=== PATIENT | female | born 1975 | race Caucasian/White ===

== ENCOUNTER 2022-10-31 01:03 | Day surgery (SDC) | payer SELFPAY ==
[2022-10-31] VITALS (16 sets, daily range): BP systolic 101–142; BP diastolic 61–85; PULSE 51–97; RESP 12–18; TEMP 36.1–36.7; O2SAT 91–100; BMI 31.0
--- NOTE | 2022-10-31 01:23 | ED.GENADULT ---
HPI - General Adult General Chief complaint: Abdominal Pain Stated complaint: sharp pain lower right abdomen Time Seen by Provider: 10/31/22 01:16 History of Present Illness HPI narrative: RLQ pain started 1730, took tylenol at 2200. pt states pain severe feels like basketball in RLQ. hard step worsens pain. last food 1900, last fluid [address] to ER. hx hernia in groin unknown side, still has appendix. did have nausea, comes and goes. no vomiting. states allergy to nsaids causes throat swelling. 47-year-old woman presenting to the emergency department complaint of pain in the right lower abdomen. Began this evening about 8 hours prior to arrival. Described as sharp maybe crampy. Feels like there is a basketball in her abdomen. She denies constipation. Stepping down hard hurts. She feels a little nauseated. Does have a history of herniorrhaphy is as she is gesturing to the left side she thinks as well as umbilical. Tried Tylenol for pain without relief. Denies personal or family history of gallbladder disease or appendicitis or nephrolithiasis/ureteral stone/colic. Was outside today some and took care to stay well-hydrated. She is not experiencing any dysuria Related Data Home Medications Medication Instructions Recorded Confirmed multivitamin 1 tab PO QAM 10/31/21 10/31/21 sumatriptan 5 mg/actuation nasal 5 mg intranasal .As Needed PRN 10/31/21 10/31/21 spray Previous Rx's Medication Instructions Recorded hydrocodone 5 mg-acetaminophen 325 1 tab PO Q6H PRN pain #25 tabs 10/31/22 mg tablet Allergies Allergy/AdvReac Type Severity Reaction Status Date / Time aspirin Allergy Severe Throat Verified 11/14/22 14:39 swells Cephalosporins Allergy Intermediate Hives Verified 11/14/22 14:39 ibuprofen Allergy Intermediate Hives Verified 11/14/22 14:39 pollen extracts Allergy Intermediate Verified 11/14/22 14:39 shellfish derived Allergy Unknown Verified 11/14/22 14:39 NSAIDS (Non-Steroidal Allergy Verified 11/14/22 14:39 Anti-Inflamma Review of Systems Status of ROS: Reports: 6 or more systems reviewed and unremarkable except as noted in History and below [facility] Medical History Menorrhagia ?N92.0 - Excessive and frequent menstruation with regular cycle (ICD-10) Surgical History Status post inguinal hernia repair ?Z98.890 - Other specified postprocedural states (ICD-10) ?Z87.19 - Personal history of other diseases of the digestive system (ICD-10) History of ventral hernia repair ?Z98.890 - Other specified postprocedural states (ICD-10) ?Z87.19 - Personal history of other diseases of the digestive system (ICD-10) History of dilation and curettage ?Z98.890 - Other specified postprocedural states (ICD-10) Family History Other Breast cancer Glioblastoma Liver cancer Social History Smoking Status: Never smoker How often do you have a drink containing alcohol: never AUDIT-C Alcohol total score: 0 Non-prescribed substance use: denies use Little interest or pleasure in doing things: not at all Feeling down, depressed, or hopeless: not at all Exam Narrative: Exam Narrative: Brow is furrowed as if uncomfortable. Breathing easily. Lungs appear to be clear. Heart in a regular rate and rhythm. Abdomen with normoactive bowel sounds is soft and moderately tender without peritoneal signs actually deep in the right adnexal area. She has a little sore in suprapubic as well. No flank pain. Extremities are without edema and well perfused. Moving all extremities without difficulty. Skin is warm and dry without apparent rash. Const: Vital Signs, click to edit/add: Vital Signs - 24 hr 10/31/22 01:11 10/31/22 04:30 Temperature 97.9 F Pulse Rate [Left P ulse Oximeter] 83 56 L Respiratory Rate 16 16 Blood Pressure [Ri ght Upper Arm] 142/85 H 118/79 Pulse Oximetry 100 97 Oxygen Delivery Me thod Room Air Room Air Documenting provider has reviewed patient's vital signs: yes Course Vital Signs Vital signs: Initial Vital Signs Temperature 97.9 F 10/31/22 01:11 Temperature Source Temporal Artery Scan 10/31/22 01:11 Pulse Rate 83 07/20/23 01:11 Respiratory Rate 16 10/31/22 01:11 Blood Pressure 142/85 H 10/31/22 01:11 Blood Pressure Mean 104 10/31/22 01:11 Blood Pressure Position Sitting 10/31/22 01:11 Pulse Oximetry 100 10/31/22 01:11 Oxygen Delivery Method Room Air 10/31/22 01:11 Vital Signs Temperature 97.9 F 10/31/22 01:11 Pulse Rate 83 10/31/22 01:11 Respiratory Rate 16 10/31/22 01:11 Blood Pressure 142/85 H 10/31/22 01:11 Pulse Oximetry 100 10/31/22 01:11 Oxygen Delivery Method Room Air 10/31/22 01:11 Temperature 98.0 F 10/31/22 11:04 Pulse Rate 55 L 10/31/22 11:04 Respiratory Rate 16 10/31/22 11:04 Blood Pressure 118/71 10/31/22 11:04 Pulse Oximetry 98 10/31/22 11:04 Oxygen Delivery Method Room Air 10/31/22 11:04 Oxygen Flow Rate 2 10/31/22 08:32 Medical Decision Making MDM Narrative Medical decision making narrative: Pain is in the area that I might think of an ovarian issue. She is not having torsion level pain I think furthermore as far she knows has never had an ovarian cyst and now with IUD. Unlikely to start now I would think. Ureteral stone remains in differential as well. Possible UTI. Possible appendicitis. Mesenteric adenitis also in differential. Check labs direct further evaluation. She does not feel she needs anything for nausea or pain at the moment. Only mildly elevated CRP. Urinalysis comes back with small amount of white cells and concentrated. CRP only slightly elevated 1.2 and a normal white count. At this point I think CT imaging might be best course of action. I do not think that an ultrasound is going to provide an answer even though has normal white count. Initiated IV fluids. CT scan reviewed by me shows possibly mildly inflamed appendix; appendicolith. I am contacted by radiologist for read as below. INDICATION: Right adnexal area pain. COMPARISON: CT of the abdomen and pelvis with contrast from 04/16/2017. TECHNIQUE: CT examination of the abdomen and pelvis was performed with the uneventful intravenous administration of 100 cc of Omnipaque 350 while 3 mm thick axial sections were obtained from the lung bases through the pubic symphysis. Oral contrast was not administered. Please note that all CT scans at this facility use dose modulation, iterative reconstruction, and/or weight-based dosing when appropriate to reduce radiation dose to as low as reasonably achievable. FINDINGS: In the abdomen, the liver has increased size of the small probable cyst in the superior lateral left lobe, segment 2. The this is of no clinical concern. The rest of the liver is normal in appearance. The spleen, pancreas, and adrenals are normal in appearance. The kidneys are normal in appearance. The gallbladder is normal in appearance. The abdominal aorta is normal in caliber with no sign of dilatation. There is no sign of retroperitoneal mass or adenopathy. The stomach, loops of small bowel, and colon in the abdomen are normal in appearance. The appendix is now dilated at 10 millimeters with mild thickening of its mcgwoan and with mild periappendiceal inflammation. A tiny appendicolith is seen proximally. There is no sign of any periappendiceal fluid or free fluid or free air in the pelvis. The findings are that of acute, nonruptured diverticulitis. The loops of small bowel, colon, and rectum in the pelvis are normal in appearance. The uterus has placement of a new T-shaped intrauterine device in satisfactory position. The adnexal regions are normal in appearance. The urinary bladder is normal in appearance. There is no sign of pelvic or inguinal mass or adenopathy. There is no sign of free air or free fluid in the abdomen or pelvis. There is increased patchy density throughout the posterior portions of both lower lobes, increasing patchy atelectasis. The osseous structures are normal in appearance for the patient`s age. IMPRESSION: CT of the pelvis shows new findings of acute, nonruptured appendicitis. Satisfactory positioning of a T-shaped intrauterine device, new compared to the previous study. CT of the abdomen shows a slight increase in size of a small probable cyst in the left lobe of the liver, of no clinical concern. I anticipate talking with our general surgeon Discussed with General surgery on-call. Anticipating early childhood associate teacher surgery. Admitted to surgery Lab Data Lab results reviewed: Yes I reviewed the patient's lab results Labs: Lab Results 10/31/22 10/31/22 Range/Units 01:25 01:36 WBC 10.83 (4.50-11.00) K/uL RBC 4.65 (4.00-5.20) m/uL Hgb 14.0 (12.0-16.0) gm/dL Hct 42.0 (33.0-51.0) % MCV 90 (80-100) fL MCH 30 (26-34) pg MCHC 33 (32-36) gm/dL RDW Coeff of Teresa 11.6 (11.5-15.5) % Plt Count 277 (140-440) K/uL Neut % (Auto) 74.6 H (42.0-72.0) % Lymph % (Auto) 17.2 L (20-44) % Quay % (Auto) 6.6 (0.0-11.0) % Eos % (Auto) 1.2 (0.0-7.0) % Baso % (Auto) 0.3 (0.0-3.0) % Neut # (Auto) 8.10 H (1.7-7.0) K/uL Lymph # (Auto) 1.90 (0.90-2.90) K/uL Quay # (Auto) 0.70 (0.00-0.90) K/UL Eos # (Auto) 0.13 (0.00-0.50) K/uL Baso # (Auto) 0.03 (0.00-0.30) K/uL Abs Immat Gran (auto) 0.01 (0.00-0.30) K/uL Imm/Tot Granulo (auto) 0.1 % Sodium 136 (135-149) mmol/L Potassium 3.5 L (3.6-5.1) mmol/L Chloride 102 (96-114) mmol/L Carbon Dioxide 29 (20-32) mmol/L BUN 17 (5-24) mg/dL Creatinine 0.8 (0.5-1.5) mg/dL Estimated Creat Clear 85.45 Estimated GFR 92 ml/min Glucose 108 (60-115) mg/dL Calcium 9.0 (8.4-10.6) mg/dL C-Reactive Protein 1.2 H (0.5-1.0) mg/dL Urine Color Yellow (Yellow) Urine Appearance Clear (Clear) Urine pH 5.5 (5.0-8.5) Ur Specific Tyler >= 1.030 (1.000-1.030) Urine Protein Trace A (Negative) Urine Glucose (UA) Negative (Negative) Urine Ketones Negative (Negative) Urine Blood Trace-intact A (Negative) Urine Nitrite Negative (Negative) Urine Bilirubin Negative (Negative) Urine Urobilinogen 0.2 (0.2-1.0) Ur Leukocyte Esterase 1+ A (Negative) Urine RBC 0-2 (0-2) Urine WBC 5-10 A (0-5) Ur Squamous Epith Cells Moderate A (None-Few) Urine Bacteria None (None) Urine Mucus Moderate A (None) Urine HCG, Qual Negative (Negative) Discharge Plan Discharge Clinical Impression: Abdominal pain, Acute appendicitis Patient Disposition: XFER to OR Condition: Stable
[2022-10-31 01:39] LABS: Basophils Absolute Auto 0.03 K/uL (0.00-0.30); Basophils Percent Auto 0.3 % (0.0-3.0); Eosinophils Absolute Auto 0.13 K/uL (0.00-0.50); Eosinophils Percent Auto 1.2 % (0.0-7.0); Immature Granulocytes Abs Auto 0.01 K/uL (0.00-0.30); Immature Granulocytes Pct Auto 0.1 %; Lymphocytes Percent Auto 17.2 % (20-44); Mean Corpuscular HGB Conc 33 gm/dL (32-36); Mean Corpuscular Hemoglobin 30 pg (26-34); Mean Corpuscular Volume 90 fL (80-100); Monocytes Percent Auto 6.6 % (0.0-11.0); Neutrophils Percent Auto 74.6 % (42.0-72.0); Platelet Count* 277 K/uL (140-440); RDW Coefficient of Variation % 11.6 % (11.5-15.5); Red Blood Count 4.65 m/uL (4.00-5.20); White Blood Count* 10.83 K/uL (4.50-11.00)
[2022-10-31 01:40] LABS: Slide Review Reflex No
[2022-10-31 01:41] LABS: Appearance Urine Clear (Clear); Bilirubin Urine Negative (Negative); Blood Urine Trace-intact (Negative); Color Urine Yellow (Yellow); Glucose Urine Negative (Negative); Ketones Urine Negative (Negative); Leukocyte Esterase Urine 1+ (Negative); Nitrite Urine Negative (Negative); Protein Urine Trace (Negative); Specific Gravity Urine >= 1.030 (1.000-1.030); Ur HCG Qualitative* Negative (Negative); Urobilinogen Urine 0.2 (0.2-1.0); pH Urine 5.5 (5.0-8.5)
[2022-10-31 01:54] LABS: Chloride* 102 mmol/L (96-114); Potassium* 3.5 mmol/L (3.6-5.1); Sodium* 136 mmol/L (135-149)
[2022-10-31 01:57] LABS: Creatinine* 0.8 mg/dL (0.5-1.5); Est. Creatinine Clearance* 85.45; Estimated Glomerular Filt Rate 92 ml/min
[2022-10-31 01:58] LABS: Blood Urea Nitrogen* 17 mg/dL (5-24); Carbon Dioxide* 29 mmol/L (20-32); Glucose* 108 mg/dL (60-115)
[2022-10-31 02:01] LABS: C Reactive Protein* 1.2 mg/dL (0.5-1.0)
[2022-10-31 02:03] LABS: Mucus Urine Moderate; RBC Urine 0-2 (0-2); Squamous Epithelial Cell Urine Moderate (None-Few)
--- NOTE | 2022-10-31 02:09 | CRLHL7_ITS ---
For Patients: As a result of the 21st Century Cures Act, medical imaging exams and procedure reports are released immediately into your electronic medical record. You may view this report before your referring provider. If you have questions, please contact your health care provider. INDICATION: Right adnexal area pain. COMPARISON: CT of the abdomen and pelvis with contrast from 04/16/2017. TECHNIQUE: CT examination of the abdomen and pelvis was performed with the uneventful intravenous administration of 100 cc of Omnipaque 350 while 3 mm thick axial sections were obtained from the lung bases through the pubic symphysis. Oral contrast was not administered. Please note that all CT scans at this facility use dose modulation, iterative reconstruction, and/or weight-based dosing when appropriate to reduce radiation dose to as low as reasonably achievable. FINDINGS: In the abdomen, the liver has increased size of the small probable cyst in the superior lateral left lobe, segment 2. The this is of no clinical concern. The rest of the liver is normal in appearance. The spleen, pancreas, and adrenals are normal in appearance. The kidneys are normal in appearance. The gallbladder is normal in appearance. The abdominal aorta is normal in caliber with no sign of dilatation. There is no sign of retroperitoneal mass or adenopathy. The stomach, loops of small bowel, and colon in the abdomen are normal in appearance. The appendix is now dilated at 10 millimeters with mild thickening of its mcgowan and with mild periappendiceal inflammation. A tiny appendicolith is seen proximally. There is no sign of any periappendiceal fluid or free fluid or free air in the pelvis. The findings are that of acute, nonruptured diverticulitis. The loops of small bowel, colon, and rectum in the pelvis are normal in appearance. The uterus has placement of a new T-shaped intrauterine device in satisfactory position. The adnexal regions are normal in appearance. The urinary bladder is normal in appearance. There is no sign of pelvic or inguinal mass or adenopathy. There is no sign of free air or free fluid in the abdomen or pelvis. There is increased patchy density throughout the posterior portions of both lower lobes, increasing patchy atelectasis. The osseous structures are normal in appearance for the patient`s age. IMPRESSION: CT of the pelvis shows new findings of acute, nonruptured appendicitis. Satisfactory positioning of a T-shaped intrauterine device, new compared to the previous study. CT of the abdomen shows a slight increase in size of a small probable cyst in the left lobe of the liver, of no clinical concern. Please note that all CT scans at this facility use dose modulation, iterative reconstruction, and/or weight-based dosing when appropriate to reduce radiation dose to as low as reasonably achievable. Dictated by Joaquin Orozco MD @ 10/31/2022 2:54:21 AM (Electronically Signed)
[2022-10-31] MEDS: 0.9 % SODIUM CHLORIDE 1000 ml 1,000 ML IV (02:36)
--- NOTE | 2022-10-31 05:44 | PM.GSCN ---
History of Present Illness Consult details Date Seen: 10/31/22 Consult date: 10/31/22 Narrative: 47-year-old female presented to emergency room with right lower quadrant abdominal pain that started yesterday in the afternoon. Patient states that the pain was sharp and was persistent. Patient tried to go to sleep in the evening but was having difficult time getting comfortable. She fell asleep for a short time but then woke up because the pain was severe. The pain was worse with movement. Patient also had nausea but no vomiting. She then presented to emergency room. In the emergency room she was found to have a normal WBC of 10. An abdominal CT was obtained that showed a dilated wall enhancing appendix with mild periappendiceal inflammation concerning for acute appendicitis. There was a small appendicolith in the appendix. Review of Systems Narrative: General: no fevers HENT: no problems swallowing CV: no shortness of breath Resp: no cough GI: See above Skin: no new rashes Musculoskeletal: no back pain Neuro: no muscle weakness PFSH PFSH Medical History Menorrhagia ?N92.0 - Excessive and frequent menstruation with regular cycle (ICD-10) Surgical History Status post inguinal hernia repair ?Z98.890 - Other specified postprocedural states (ICD-10) ?Z87.19 - Personal history of other diseases of the digestive system (ICD-10) History of ventral hernia repair ?Z98.890 - Other specified postprocedural states (ICD-10) ?Z87.19 - Personal history of other diseases of the digestive system (ICD-10) History of dilation and curettage ?Z98.890 - Other specified postprocedural states (ICD-10) Family History Other Breast cancer Glioblastoma Liver cancer Social History Smoking Status: Never smoker How often do you have a drink containing alcohol: never AUDIT-C Alcohol total score: 0 Non-prescribed substance use: denies use Little interest or pleasure in doing things: not at all Feeling down, depressed, or hopeless: not at all Meds Home Medications and Allergies Home Medications Medication Instructions Recorded Confirmed Type multivitamin 1 tab PO QAM 10/31/21 10/31/21 History sumatriptan 5 mg/actuation nasal 5 mg intranasal .As Needed PRN 10/31/21 10/31/21 History spray Allergies Allergy/AdvReac Type Severity Reaction Status Date / Time aspirin Allergy Severe Throat Verified 10/31/22 02:30 swells Cephalosporins Allergy Intermediate Hives Verified 10/31/22 02:30 ibuprofen Allergy Intermediate Hives Verified 10/31/22 02:30 NSAIDS (Non-Steroidal Allergy Verified 10/31/22 02:30 Anti-Inflamma seasonal Allergy Intermediate Itchy Uncoded 10/31/22 02:30 eyes, runny nose Shellfish Allergy Allergy Unknown Uncoded 10/31/22 02:30 Exam Narrative: Exam Narrative: General appearance: Alert, cooperative, and in no distress Pulmonary: Chest symmetric, lungs clear bilaterally Cardiovascular Heart: Regular rate and rhythm, S1, S2, no murmurs/rubs/gallops Gastrointestinal Abdominal: soft, not distended, tender to palpation in the right lower quadrant with rebound tenderness and positive Rovsing sign. Skin: Normal skin color, texture, and turgor. No rashes or lesions. Psychiatric: Alert, cooperative, normal affect. Const: Vital Signs, click to edit/add: Vital Signs - 24 hr 10/31/22 01:11 10/31/22 04:30 Temperature 97.9 F Pulse Rate [Left P ulse Oximeter] 83 56 L Respiratory Rate 16 16 Blood Pressure [Ri ght Upper Arm] 142/85 H 118/79 Pulse Oximetry 100 97 Oxygen Delivery Me thod Room Air Room Air Results Labs Labs: Abnormal lab results 10/31/22 10/31/22 Range/Units 01:25 01:36 Neut % (Auto) 74.6 H (42.0-72.0) % Lymph % (Auto) 17.2 L (20-44) % Neut # (Auto) 8.10 H (1.7-7.0) K/uL Potassium 3.5 L (3.6-5.1) mmol/L C-Reactive Protein 1.2 H (0.5-1.0) mg/dL Urine Protein Trace A (Negative) Urine Blood Trace-intact A (Negative) Ur Leukocyte Esterase 1+ A (Negative) Urine WBC 5-10 A (0-5) Ur Squamous Epith Cells Moderate A (None-Few) Urine Mucus Moderate A (None) Diabetes panel 10/31/22 Range/Units 01:25 Sodium 136 (135-149) mmol/L Potassium 3.5 L (3.6-5.1) mmol/L Chloride 102 (96-114) mmol/L Carbon Dioxide 29 (20-32) mmol/L BUN 17 (5-24) mg/dL Creatinine 0.8 (0.5-1.5) mg/dL Glucose 108 (60-115) mg/dL Calcium 9.0 (8.4-10.6) mg/dL Calcium panel 10/31/22 Range/Units 01:25 Calcium 9.0 (8.4-10.6) mg/dL Pituitary panel 10/31/22 Range/Units 01:25 Sodium 136 (135-149) mmol/L Potassium 3.5 L (3.6-5.1) mmol/L Chloride 102 (96-114) mmol/L Carbon Dioxide 29 (20-32) mmol/L BUN 17 (5-24) mg/dL Creatinine 0.8 (0.5-1.5) mg/dL Glucose 108 (60-115) mg/dL Calcium 9.0 (8.4-10.6) mg/dL Adrenal panel 10/31/22 Range/Units 01:25 Sodium 136 (135-149) mmol/L Potassium 3.5 L (3.6-5.1) mmol/L Chloride 102 (96-114) mmol/L Carbon Dioxide 29 (20-32) mmol/L BUN 17 (5-24) mg/dL Creatinine 0.8 (0.5-1.5) mg/dL Glucose 108 (60-115) mg/dL Calcium 9.0 (8.4-10.6) mg/dL All other labs normal. Assessment and Plan Assessment and plan (1) Acute appendicitis: Status: Acute Plan 47-year-old female presents with acute appendicitis. I discussed with the patient her laboratory and clinical findings. We also talked about her CT results. Patient does have a dilated appendix with periappendiceal inflammation. I recommended to proceed with laparoscopic appendectomy. The procedure was discussed in detail. The risks associated procedure including infection, bleeding, and injury to intra-abdominal organs, were all discussed with the patient, and she agreed to proceed.
--- NOTE | 2022-10-31 06:19 | PC.NURSE ---
patient to OR
[2022-10-31] MEDS: LACTATED RINGERS 1000 ML 1,000 ML 75 ML IV (06:22)
--- NOTE | 2022-10-31 06:22 | P.GSOP_ITS ---
Operative Note Date of procedure: 10/31/22 Pre-op diagnosis: 1. Acute appendicitis. Post-op diagnosis: 1. Acute non perforated appendicitis. Type of Procedure: 1. Laparoscopic appendectomy. Indications: 47-year-old female presented to emergency room with less than 24 hours of right lower quadrant abdominal pain that was described as severe. She was found to have tenderness to palpation in the right lower quadrant with positive rebound tenderness and positive Rovsing sign. Her WBC was normal. An abdominal CT was obtained that showed dilated appendix that was wall enhancing with mild periappendiceal inflammation and an appendicolith in the appendix. Given patient's clinical history and her physical exam, acute appendicitis was suspected, and laparoscopic appendectomy was recommended. The procedure was discussed in detail. The risks associated procedure including infection, bleeding, and injury to intra-abdominal organs were all discussed with the roberth naik, and she agreed to proceed. Procedure Description: After discussing the risks and benefits of the procedure, the patient signed informed consent.? The operative site was marked and the patient was brought to the operating room and placed on the operating table in supine position.? Care was taken to pad the patient's pressure points.?? The patient was then intubated by anesthesia.?? The operative site was then prepped and draped in the usual sterile fashion.? A time-out was then performed. A 5-mm laparoscopy port was placed in the left upper quadrant guided by a 5-mm laparoscope placed into a translucent trochar. Passage through the layers of the abdominal wall was visualized with the laparoscope. A pneumoperitoneum was established. A 30-degree 5-mm laparoscope was advanced into the abdomen. The abdomen was briefly surveyed, and there was no evidence of diffuse peritonitis. A 12-mm port and a 5-mm port were placed in the left low quadrant and suprapubically, respectively, under direct visualization by laparoscope. Left upper quadrant entrance port was then examined intraabdominally by placing the camera through the left lower quadrant port and no intraabdominal injury was seen. Omental adhesions were noted to patient's previous umbilical hernia repair site. Those were taken down with Harmonic scalpel. The patient was placed in Trendelenburg position, allowing the abdominal contents to shift cephalad. The small bowel was moved toward the midline in the abdomen and this allowed for identification of the appendix. It appeared to be inflamed. The appendix was grasped and dissected from the peritoneum using Harmonic scalpel. A [place] clamp was passed between the appendiceal mesentery and the base of the appendix, creating a window. Appendiceal mesentery was skeletonized with Harmonic scalpel. The appendiceal artery was then clipped with 2 5 mm clips on the patient's side and divided distally with Harmonic scalpel. A vascular load Endo-EMIGDIO stapler was advanced through the 12-mm port into the abdomen and appendix was stapled off at its base. The appendix was then placed in an endoscopic retrieval bag and extracted from the abdomen through the 12-mm port. The abdomen was surveyed for hemostasis. And no bleeding was seen. The 12-mm port was withdrawn and the fascial defect was closed with 0-0 Vicryl stitch using Josh Brigid needle under direct visualization. The 5-mm port was removed under direct visualization. The left upper quadrant port was used to evacuate the pneumoperitoneum and then withdrawn. The skin incisions were closed with 4-0 monocryl. Steri-Strips were applied over the incisions. All counts were correct at the end of the case. The patient tolerated this procedure well and was transferred to PACU in stable condition. Findings: Inflamed appendix with no signs of perforation. Small left inguinal hernia with no intra-abdominal organs incarcerated in the hernia. Anesthesia: GETA Surgeon: Lyla Ruby MD Estimated blood loss (mL): 5 Specimen: Appendix Condition: stable Disposition: PACU
[2022-10-31] MEDS: CLINDAMYCIN 900 MG/50 ML-D5W IVPB (06:28)
--- NOTE | 2022-10-31 06:47 | W.ANESCHARGE ---
Anesthesia Charges Start Date/Time Anesthesia Start Date: 10/31/22 Anesthesia Start Time: 06:22 Stop Date/Time Anesthesia Stop Date: 10/31/22 Anesthesia Stop Time: 07:21 Summary Emergency: MDA
--- NOTE | 2022-10-31 07:24 | W.ANESCHARGE ---
Anesthesia Charges Start Date/Time Anesthesia Start Date: 10/31/22 Anesthesia Start Time: 06:22 Stop Date/Time Anesthesia Stop Date: 10/31/22 Anesthesia Stop Time: 07:21 Summary Emergency: MDA
[2022-10-31] MEDS: fentaNYL 100 MCG/2 ML inj 50 MCG IVP (07:30)
--- NOTE | 2022-10-31 09:46 | SUR.PHASEII ---
pt resting, declines anything for pain, rates her incisional discomfort 4/10 on left side. Encouraged to drink water/sprite and is eating a few saltine crackers. Pts mother was to be here approx 0930, discharge instructions were reviewed with pt's .
== END 2022-10-31 11:08 | disposition home or self-care (01) ==
LOC: ED 05:27 → SS 05:30
PROVIDERS: Surgery; Emergency Provider Family Medicine; Visit Provider Family Medicine
PROC: 0DTJ4ZZ Resection of Appendix, Percutaneous Endoscopic Approach (ICD-10-PCS; CPT 44970; principal; 2022-10-31 06:00)
DX: K35.80 Unspecified acute appendicitis (principal)
CPT/HCPCS: 44970; 00840; 36415; 74177; 80048; 81001; 81025; 85025; 86140; 87086; 88304; 99140; 99284; J0330; J1100; J2250; J2405; J2704; J2710; J3010; J7030; J7120; Q9967; S0077

== ENCOUNTER 2023-08-07 11:02 | Outpatient (CLI) | payer BC, SELFPAY | END 2023-08-07 11:03 | disposition home or self-care (01) | PROVIDERS: Visit Provider Registered Nurse | DX: Z13.220 Encounter for screening for lipoid disorders (principal); Z13.1 Encounter for screening for diabetes mellitus; Z13.29 Encounter for screening for other suspected endocrine disorder | CPT/HCPCS: 80061; 82947; 84443 ==

== ENCOUNTER 2023-12-25 11:18 | Outpatient (CLI) | payer BC, SELFPAY ==
--- NOTE | 2023-12-25 11:30 | CRLHL7_ITS ---
For Patients: As a result of the Century Cures Act, medical imaging exams and procedure reports are released immediately into your electronic medical record. You may view this report before your referring provider. If you have questions, please contact your health care provider. BILATERAL SCREENING MAMMOGRAM WITH COMPUTER-AIDED DETECTION AND TOMOSYNTHESIS TECHNIQUE: CC and MLO views were obtained. These mammographic images have been obtained using full-field digital technique. These mammographic images were interpreted with the benefit of computer-aided detection. Breast Tomosynthesis was used in this interpretation. COMPARISON FILM: 09/06/22, 10/20/20, 05/20/19. FINDINGS: There are scattered areas of fibroglandular density. IMPRESSION: There is no radiographic evidence for malignancy. ASSESSMENT: BI-RADS Category 1: Negative RECOMMENDATION: Routine screening mammogram in 1 year. A lay language report of this examination will be provided to the patient. Piyush Lomeli M.D. Diagnostic Radiologist [email or web address] SP/Dictated by: Piyush Lomeli MD @ 12/25/2023 12:48:00 PM (Electronically Signed)
== END 2023-12-25 11:19 | disposition home or self-care (01) ==
LOC: MAMMO 11:19
PROVIDERS: Visit Provider Registered Nurse
DX: Z12.31 Encounter for screening mammogram for malignant neoplasm of breast (principal)
CPT/HCPCS: 77063; 77067

== ENCOUNTER 2024-08-27 10:38 | Outpatient (CLI) | payer BC, SELFPAY | END 2024-08-27 10:39 | disposition home or self-care (01) | LOC: NFLDREF 10:39 | PROVIDERS: Visit Provider Registered Nurse | DX: Z00.00 Encounter for general adult medical examination without abnormal findings (principal); Z13.6 Encounter for screening for cardiovascular disorders | CPT/HCPCS: 80061 ==

== ENCOUNTER 2025-03-24 13:40 | Outpatient (CLI) | payer BC, SELFPAY ==
--- NOTE | 2025-03-24 13:40 | CRLHL7_ITS ---
For Patients: As a result of the Century Cures Act, medical imaging exams and procedure reports are released immediately into your electronic medical record. You may view this report before your referring provider. If you have questions, please contact your health care provider. INDICATION: BILATERAL SCREENING MAMMOGRAM, ASYMPTOMATIC 49 Y/O FEMALE COMPARISON: 12/25/2023, 09/06/2022, 10/20/2020 TECHNIQUE: Digital mammogram in CC and MLO projections including computer-aided detection (CAD) and tomosynthesis. BREAST COMPOSITION: The breasts are almost entirely fatty. FINDINGS: No suspicious findings. ASSESSMENT: BI-RADS 1 Negative RECOMMENDATION: Annual screening mammogram. A lay language report of this examination will be provided to the patient. Dictated by: Piyush Lomeli MD @ 03/25/2025 09:37:48 (Electronically Signed)
== END 2025-03-24 13:41 | disposition home or self-care (01) ==
LOC: MAMMO 13:40
PROVIDERS: PCP Family Medicine; Visit Provider Registered Nurse
DX: Z12.31 Encounter for screening mammogram for malignant neoplasm of breast (principal)
CPT/HCPCS: 77063; 77067